=== PATIENT | female | born 1985 | race Caucasian/White ===

== ENCOUNTER 2021-01-22 14:29 | Inpatient (IN) | payer MEDICAID ==
[~2021-01-22] VITALS: Ht 188 cm; Wt 147.3 kg
[2021-01-22] MEDS: PENICILLIN GK 2,500,000 UNITS in DEXTROSE 5% 100 ML IVPB SCH (01:40)
[~2021-01-22 14:29] MED LIST: ACYCLOVIR PO; LORA-247 PO; OMEP-110 PO
[2021-01-22] MEDS ORDERED: D5%-LACTATED RINGERS 1,000 ML IV SCH (21:00)
[2021-01-22] MEDS ORDERED: PLEASE ENTER HEIGHT AND WEIGHT MC SCH (21:00)
[2021-01-22] MEDS ORDERED: TERBUTALINE 1 MG/ML, 1ML IVPush PRN (21:00)
[2021-01-22] MEDS ORDERED: LACTATED RINGERS 1,000 ML IV SCH (21:00)
[2021-01-22] MEDS ORDERED: TERBUTALINE 1 MG/ML, 1ML SQ PRN (21:00)
[2021-01-22] MEDS ORDERED: OXYTOCIN 30U/ 0.9% NaCL 500ML 500 ML IV ONE (21:00)
[2021-01-22] MEDS ORDERED: PENICILLIN GK 5,000,000 UNITS in DEXTROSE 5% 100 ML IVPB ONE (21:00)
[2021-01-22] MEDS ORDERED: ONDANSETRON 2MG/ML, 2ML IVPush PRN (21:00)
[2021-01-22] MEDS ORDERED: CALCIUM CARBONATE 500 MG TAB.CHEW PO PRN (21:00)
[2021-01-22 21:12] LABS: BASOPHILS % (AUTO) 1 % (0-1); EOSINOPHILS % (AUTO) 0 % (1-7); LYMPHOCYTES % (AUTO) 31 % (22-44); MEAN CORPUSCULAR HGB CONC 33.5 g/dL (32.4-35.8); MEAN PLATELET VOLUME 8.1 fL (7.4-10.4); MONOCYTES % (AUTO) 8 % (2-9); NEUTROPHILS % (AUTO) 60 % (42-75); PLATELET COUNT 222 x10^3/uL (130-400); RED BLOOD COUNT 3.63 x10^6/uL (3.82-5.3)
[2021-01-22 21:14] LABS: MD NO
[2021-01-22] MEDS ORDERED: LIDOCAINE 1%, 20ML ONE (21:22)
[2021-01-22] MEDS ORDERED: MISOPROSTOL 200 MCG TABLET ONE (21:22)
[2021-01-22] MEDS: MISOPROSTOL 25 MCG TABLET VG PRN (21:30)
[2021-01-23] MEDS: MISOPROSTOL 25 MCG TABLET VG PRN (01:45)
[2021-01-23] MEDS ORDERED: NEWBORN KIT ONE (01:54)
[2021-01-23] MEDS ORDERED: FENTANYL PF 100 MCG/2ML ONE (05:33)
[2021-01-23] MEDS: FENTANYL PF 100 MCG/2ML IVPush PRN ×3 (05:38→08:32)
[2021-01-23] MEDS: PENICILLIN GK 2,500,000 UNITS in DEXTROSE 5% 100 ML IVPB SCH (05:39)
[2021-01-23] MEDS ORDERED: FENTANYL PF 100 MCG/2ML IV PRN (06:00)
[2021-01-23] MEDS ORDERED: MISOPROSTOL 200 MCG TABLET PR PRN (10:00)
[2021-01-23] MEDS ORDERED: METHYLERGONOVINE 0.2 MG/ML IM PRN (10:00)
[2021-01-23] MEDS ORDERED: METOCLOPRAMIDE 5 MG/ML, 2ML IV PRN (10:00)
[2021-01-23] MEDS ORDERED: OXYcodone IR 5MG TABLET PO PRN ×2 (10:00)
[2021-01-23] MEDS ORDERED: DOCUSATE 100 MG CAPSULE PO PRN (10:00)
[2021-01-23] MEDS ORDERED: SIMETHICONE 80 MG CHEW TAB PO PRN (10:00)
[2021-01-23] MEDS ORDERED: GLYCERIN ADULT SUPP PR PRN (10:00)
[2021-01-23] MEDS ORDERED: MEASLES,MUMPS&RUBELLA VACC/PF 0.5 ML SQ-VACC PRN (10:00)
[2021-01-23] MEDS ORDERED: MAGNESIUM HYDROXIDE 8%, 30ML UDC PO PRN (10:00)
[2021-01-23] MEDS ORDERED: ONDANSETRON 2MG/ML, 2ML IV PRN (10:00)
[2021-01-23] MEDS ORDERED: CARBOPROST TROMETHAMINE 250 MCG/ML, 1ML IM PRN (10:00)
[2021-01-23] MEDS ORDERED: DIPH,PERTUSS(ACELL),TET VAC/PF NC IM-VACC PRN (10:00)
[2021-01-23] MEDS ORDERED: BISACODYL 10 MG SUPP PR PRN (10:00)
[2021-01-23] MEDS ORDERED: ACETAMINOPHEN 325 MG TABLET PO PRN ×2 (10:00)
[2021-01-23] MEDS ORDERED: IBUPROFEN 600 MG TABLET PO PRN (10:00)
[2021-01-23] MEDS: OXYTOCIN 30U/ 0.9% NaCL 500ML 500 ML IV SCH ×2 (11:06→20:30)
[2021-01-23 12:30] VITALS: BP 109/69
[2021-01-23 16:07] VITALS: BP 111/74
[2021-01-23 17:28] LABS: BASOPHILS % (AUTO) 1 % (0-1); EOSINOPHILS % (AUTO) 0 % (1-7); LYMPHOCYTES % (AUTO) 13 % (22-44); MEAN CORPUSCULAR HEMOGLOBIN 27.8 pg (27.0-34.8); MEAN CORPUSCULAR HGB CONC 33.3 g/dL (32.4-35.8); MEAN PLATELET VOLUME 8.3 fL (7.4-10.4); MONOCYTES % (AUTO) 5 % (2-9); NEUTROPHILS % (AUTO) 82 % (42-75); PLATELET COUNT 236 x10^3/uL (130-400); RED BLOOD COUNT 3.74 x10^6/uL (3.82-5.3); RED CELL DISTRIBUTION WIDTH 14.8 % (9.6-15.2)
[2021-01-23 17:45] LABS: MD NO
[2021-01-23 20:30] VITALS: BP 115/60
[2021-01-24 00:24] VITALS: BP 116/73
[2021-01-24 04:43] VITALS: BP 122/78
[2021-01-24] MEDS: OXYTOCIN 30U/ 0.9% NaCL 500ML 500 ML IV SCH (06:00)
[2021-01-24 08:20] VITALS: BP 146/84
[2021-01-24] MEDS ORDERED: PRENATAL VIT/IRON/FA 1 EACH TABLET PO SCH (09:00)
[2021-01-24] MEDS ORDERED: DIPH,PERTUSS(ACELL),TET VAC/PF NC IM-VACC ONE (15:30)
[2021-01-24] MEDS ORDERED: IBUP-1222 PO (17:11)
== END 2021-01-24 18:00 | disposition home or self-care (01) | DRG 806 ==
LOC: LDIP 20:10 → 2NW 01-23 11:59
PROVIDERS: ADMIT Obstetrics & Gynecology; ATTEND Obstetrics & Gynecology
PROC: 10E0XZZ Delivery of Products of Conception, External Approach (ICD-10-PCS; principal; 2021-01-23)
PROC: 0KQM0ZZ Repair Perineum Muscle, Open Approach (ICD-10-PCS; 2021-01-23)
PROC: 3E033VJ Introduction of Other Hormone into Peripheral Vein, Percutaneous Approach (ICD-10-PCS; 2021-01-23)
PROC: 3E0R3BZ Introduction of Anesthetic Agent into Spinal Canal, Percutaneous Approach (ICD-10-PCS; 2021-01-23)
PROC: 00HU33Z Insertion of Infusion Device into Spinal Canal, Percutaneous Approach (ICD-10-PCS; 2021-01-23)
DX: O77.0 Labor and delivery complicated by meconium in amniotic fluid (principal); O99.354 Diseases of the nervous system complicating childbirth; Z37.0 Single live birth; O99.824 Streptococcus B carrier state complicating childbirth; G93.0 Cerebral cysts; Z3A.39 39 weeks gestation of pregnancy; O70.1 Second degree perineal laceration during delivery; Z20.822 Contact with and (suspected) exposure to COVID-19
CPT/HCPCS: 36415; 85025; 86592; 86850; 86900; 87635; 90715; G0378; J2405; J2540; J3010; J2590; J7120